=== PATIENT | female | born 1975 | race African-American/Black ===

== ENCOUNTER 2017-08-09 09:15 | Emergency (ER) | payer MEDICAID ==
[2017-08-09 09:29] VITALS: BP 158/116
[2017-08-09] MEDS ORDERED: ACETAMINOPHEN 500 MG TAB PO ONE (10:15)
[2017-08-09] MEDS ORDERED: cloNIDine HCL 0.1 MG TAB PO ONE (10:15)
== END 2017-08-09 11:00 | disposition home or self-care (01) ==
LOC: ER 09:15
DX: I10 Essential (primary) hypertension (principal)